=== PATIENT | female | born 2000 | race Caucasian/White ===

== ENCOUNTER 2019-01-03 00:43 | Emergency (ER) | payer BC ==
--- NOTE | 2019-01-03 01:03 | EDPHY ---
H & P Stated Complaint: low back and left hip pain Time Seen by Provider: 01/03/19 01:03 HPI/ROS: HPI CHIEF COMPLAINT: Low back pain. HISTORY OF PRESENT ILLNESS: Patient is a 18-year-old female she is otherwise healthy denies any significant medical history she presents emergency room low back pain. She has had low back since . She has been followed by a chiropractor at her house in [place]. She has had multiple "back adjustments". She states she is being treated for sacral pain. She states recently she was home in [place] for spring and had a back adjustment. However pain is gotten worse. She presents emergency room with left-sided sciatica type pain. Sharp stabbing it goes from her left para-vertebral will lumbar spine down her left gluteus into her leg. Denies saddle anesthesia, denies fever, denies focal weakness or decreased sensation. She has intermittent sharp stabbing pain down her left gluteus. No trauma reported. Past Medical History: Denies significant medical history Past Surgical History: Denies significant surgical history Social History: Denies drugs alcohol tobacco. Family History: Noncontributory ROS REVIEW OF SYSTEMS: 10 Systems were reviewed and negative with the exception of the elements mentioned in the history of present illness. Exam Constitutional triage nursing summary reviewed, vital signs reviewed, awake/ alert. Eyes normal conjunctivae and sclera, EOMI, PERRLA. HENT normal inspection, atraumatic, moist mucus membranes, no epistaxis, neck supple/ no meningismus, no raccoon eyes. Respiratory clear to auscultation bilaterally, normal breath sounds, no respiratory distress, no wheezing. Cardiovascular rate normal, regular rhythm, no murmur, no edema, distal pulses normal. Gastrointestinal soft, non-tender, no rebound, no guarding, normal bowel sounds, no distension, no pulsatile mass. Genitourinary no CVA tenderness. Musculoskeletal no significant midline pain on exam, no midline vertebral tenderness, full range of motion, no calf swelling, no tenderness of extremities , no meningismus, good pulses, neurovascularly intact. With raise of her left leg off the bed she does have some mild pain. No saddle anesthesia. No leg weakness. Normal reflexes. Skin pink, warm, & dry, no rash, skin atraumatic. Neurologic awake, alert and oriented x 3, AAOx3, moves all 4 extremities equally, motor intact, sensory intact, CN II-XII intact, normal cerebellar, normal vision, normal speech. Psychiatric normal mood/affect. Heme/Lymph/Immune no lymphadenopathy. Differential Diagnosis: Includes but is not limited to in a particular order sciatica, nerve root compression, annular tear, compression fracture, cauda equina Medical Decision Making: Plan for this patient IV establishment IV pain control , x-ray lumbar spine, gentle IV fluids, basic blood work and re-evaluate. Re-evaluation: X-ray of the lumbar spine shows no acute fracture there is some degenerative disc disease. Image interpreted by myself. Normal alignment. Patient re-evaluated 3:35 a.m. Resting comfortably. Pain well controlled the patient is requesting discharge. She received IV Toradol, IV Dilaudid IV Decadron. IV fluids and is resting comfortably. She has no signs of acute cauda equina on exam. No leg weakness. I do recommend she follows up with primary care doctor for sciatica. She had may be some point need an MRI of her back. I have discussed this with her she understands what to return emergency room for the includes worsening back pain, fever, not doing well [id number]: Patient re-evaluated this time resting comfortably. Able to ambulate well. No significant back pain is requesting discharge home. We discussed return precautions Prescription provided for Decadron ibuprofen. Gentle stretching, ice, return if worse. Source: Patient - Personal History LMP (Females 10-55): Extended Cycle BCP/Inj Current Tetanus Diphtheria and Acellular Pertussis (TDAP): Yes - Medical/Surgical History Hx Asthma: No Hx Chronic Respiratory Disease: No Hx Diabetes: No Hx Cardiac Disease: No Hx Renal Disease: No Hx Cirrhosis: No Hx Alcoholism: No Hx HIV/AIDS: No Hx Splenectomy or Spleen Trauma: No Other PMH: denies - Social History Smoking Status: Never smoked Constitutional: Initial Vital Signs Temperature (C) 37.3 C 01/03/19 00:46 Heart Rate 107 H 01/03/19 00:46 Respiratory Rate 18 01/03/19 00:46 Blood Pressure 117/86 H 01/03/19 00:46 O2 Sat (%) 97 01/03/19 00:46 O2 Delivery Mode Room Air Allergies/Adverse Reactions: No Known Allergies Allergy (Unverified 01/03/19 00:45) Home Medications: Medication Instructions Recorded Bcp 01/03/19 Dexamethasone [Decadron 4 MG (*)] 4 mg PO DAILY #4 tab 01/03/19 Ibuprofen [Motrin (*)] 800 mg PO Q6-8PRN #10 tab 01/03/19 Medical Decision Making - Data Points Laboratory Results: Laboratory Results 01/03/19 01:10 01/03/19 01:10 Medications Given: Discontinued Medications Dexamethasone (Decadron Injection) 10 mg IVP EDNOW ONE Stop: 01/03/19 01:12 Last Admin: 01/03/19 01:27 Dose: 10 mg Hydromorphone HCl (Dilaudid) 1 mg IVP EDNOW ONE Stop: 01/03/19 01:11 Last Admin: 01/03/19 01:27 Dose: 1 mg Sodium Chloride (Ns) 1,000 mls @ 0 mls/hr IV EDNOW ONE; Wide Open PRN Reason: Protocol Stop: 01/03/19 01:11 Last Admin: 01/03/19 01:22 Dose: 1,000 mls Ketorolac Tromethamine (Toradol) 15 mg IVP EDNOW ONE Stop: 01/03/19 01:12 Last Admin: 01/03/19 01:23 Dose: 15 mg Ondansetron HCl (Zofran) 4 mg IVP EDNOW ONE Stop: 01/03/19 01:11 Last Admin: 01/03/19 01:26 Dose: 4 mg Departure - Departure Disposition: Home, Routine, Self-Care Clinical Impression: Sciatica Qualifiers: Laterality: left Qualified Code(s): M54.32 - Sciatica, left side Condition: Good Instructions: Sciatica (ED), Lumbar Radiculopathy (ED) Additional Instructions: 1. Please follow up with her primary care doctor 2. Anti-inflammatory pain medicine for mild pain 3. Decadron for mild pain 4. Return to the emergency room if you have worsening pain, not doing well Referrals: MARIBEL YAP [Other] - As per Instructions Stand Alone Forms: School Excuse Prescriptions: Dexamethasone [Decadron 4 MG (*)] 4 mg PO DAILY #4 tab Ibuprofen [Motrin (*)] 800 mg PO Q6-8PRN #10 tab
[2019-01-03] MEDS ORDERED: HYDROmorphONE/DILAUDID 2 MG/ML INJ IVP ONE (01:10)
[2019-01-03] MEDS ORDERED: NS 1,000 ML IV ONE (01:10)
[2019-01-03] MEDS ORDERED: ONDANSETRON 4 MG/2 ML VIAL IVP ONE (01:10)
[2019-01-03] MEDS ORDERED: DEXAMETHASONE 10 MG/ML VIAL IVP ONE (01:11)
[2019-01-03] MEDS ORDERED: KETOROLAC 15 MG/1 ML SDV IVP ONE (01:11)
[2019-01-03 01:25] LABS: PLATELET COUNT 362 10^3/uL (150-400)
[2019-01-03 03:55] VITALS: BP 116/60
== END 2019-01-03 03:55 | disposition home or self-care (01) ==
DX: M54.42 Lumbago with sciatica, left side (principal); E86.9 Volume depletion, unspecified
CPT/HCPCS: 96374; J1100; J1170; J1885; J2405